=== PATIENT | female | born 1955 | race Caucasian/White ===

== ENCOUNTER 2019-03-12 11:25 | Emergency (ER) | payer MEDICARE, BC ==
[~2019-03-12] VITALS: Ht 175.3 cm; Wt 77.1 kg
[2019-03-12] MEDS ORDERED: HYDROMORPHONE INJ 2 MG/ML DISP.SYRIN IV ONE (12:00)
[2019-03-12] MEDS ORDERED: IV NS 0.9% 1,000 ML BAG IV ONE (12:00)
[2019-03-12] MEDS ORDERED: ONDANSETRON HCL/PF 4 MG/2 ML VIAL IVP ONE (12:00)
[2019-03-12] MEDS ORDERED: HYDROMORPHONE 1 MG/1 ML DISP.SYRIN ONE (12:05)
[2019-03-12] MEDS ORDERED: ONDANSETRON HCL/PF 4 MG/2 ML VIAL ONE (12:05)
[2019-03-12 13:15] VITALS: BP 126/72
== END 2019-03-12 13:39 | disposition home or self-care (01) ==
LOC: ER 11:28
DX: S42.291A Other displaced fracture of upper end of right humerus, initial encounter for closed fracture (principal); G89.29 Other chronic pain; Z98.890 Other specified postprocedural states; W01.0XXA Fall on same level from slipping, tripping and stumbling without subsequent striking against object, initial encounter; Y93.89 Activity, other specified; Y92.89 Other specified places as the place of occurrence of the external cause; Y99.8 Other external cause status
CPT/HCPCS: 29105; 73030; 96374; 96375; 99283; J1170; J2405; J7030

== ENCOUNTER 2019-03-20 04:56 | Inpatient (IN) | payer MEDICARE, BC ==
[~2019-03-20] VITALS: Ht 172.7 cm; Wt 80.5 kg
[2019-03-20 06:00] VITALS: BP 148/92
--- NOTE | 2019-03-20 06:16 | NUR ---
RN MS ADMITTING NOTES RECEIVED PT AMBULATORY ACCOMPANIED BY SPOUSE FOR DAY SURGERY. AWAKE ALERT ORIENTED X4, BREATHING EVEN AND UNLABORED ON ROOM AIR. IV ACCESS ON THE L HAND 20G, CONSENTS SIGNED, SURGERY CHECKLIST DONE, ADMISSION COMPLETED, WILL CONTINUE TO MONITOR
[2019-03-20] MEDS ORDERED: ANESTHESIA TRAY IN PYXIS 1 EA TRAY MC ONE (06:24)
[2019-03-20] MEDS ORDERED: BACITRACIN 50000 UNITS/VIAL ONE (06:24)
[2019-03-20] MEDS ORDERED: BUPIVACAINE 0.5 % PF 150 MG/30 ML VIAL ONE (06:24)
[2019-03-20] MEDS ORDERED: GABA800T11 PO (06:37)
[2019-03-20] MEDS ORDERED: FENTANYL PF 250MCG/5ML AMPUL ONE (07:09)
[2019-03-20] MEDS ORDERED: METOCLOPRAMIDE HCL 10 MG/2 ML VIAL ONE ×2 (07:09→10:20)
[2019-03-20] MEDS ORDERED: MIDAZOLAM HCL 2 MG/2ML VIAL ONE (07:09)
[2019-03-20] MEDS ORDERED: ROCURONIUM BROMIDE 50 MG/5 ML ONE (07:10)
[2019-03-20] MEDS ORDERED: FAMOTIDINE/PF INJ 20 MG/2 ML VIAL IV ONE (07:10)
[2019-03-20] MEDS ORDERED: BUPIVACAINE 0.25% 75 MG/30 ML VIAL ONE (07:11)
--- NOTE | 2019-03-20 07:15 | NUR ---
M/S RN OPENING NOTES RECEIVED ENDORSEMENT FROM [facility] FOR PATIENT WITH RIGHT REVERSE TOTAL SHOULDER ARHTROPLASTY WHO IS CURRENTLY IN SURGERY. WILL FURTHER ASSESS PATIENT ONCE ON MED SURG FLOOR.
[2019-03-20] MEDS ORDERED: SEVOFLURANE 250 ML BOTTLE IH ONE (07:46)
[2019-03-20] MEDS ORDERED: TRANEXAMIC ACID 1,000 MG in IV NS 0.9% 50 ML IV ONE (08:00)
[2019-03-20] MEDS ORDERED: ONDANSETRON HCL/PF 4 MG/2 ML VIAL ONE (10:06)
[2019-03-20] MEDS ORDERED: FENTANYL PF 100MCG/2ML AMPUL ONE (10:09)
--- NOTE | 2019-03-20 10:40 | NUR ---
M/S RN NOTES RECEIVED PATIENT FROM S/P REVERSE TOTAL RIGHT SHOULDER ARTHROPLASTY VIA GURNEY ACCOMPANIED BY KWAME FROM OR AND DENA . PATIENT A/O X4 AND ABLE TO MAKE NEEDS KNOWN, PATIENT RESPONSIVE TO ALL STIMULI. RESPIRATION EVEN AND NON LABORED WITH NO ACUTE RESPIRATORY DISTRESS, ON OXYGEN AT 2LPM VIA NASAL CANNULA AND TOLERATED WELL. ABDOMEN SOFT AND NON DISTENDED, FC IN PLACE WITH CLEAR YELLOW URINE OUTPUT. PATIENT COMPLAIN OF RIGHT SHOULDER PAIN 10/10, GIVEN NORCO ORDERED. ABLE TO MOVE RIGHT HAND FINGERS. IV SITE AT LEFT HAND GAUGE 20, PATENT IN FLUSHING. ALL CONCERNS ATTENDED. PLACED CALL LIGHT WITHIN REACH FOR SAFETY. ORDERS FROM DR. WILHELM VERIFIED, NOTED AND CARRIED OUT. WILL CONTINUE TO EVALUATE CARE.
[2019-03-20] MEDS ORDERED: ACETAMINOPHEN 325 MG TABLET PO PRN (11:00)
[2019-03-20] MEDS: HYDROCODONE/APAP 5/325MG 1 EACH TABLET PO PRN ×3 (11:07→23:49)
[2019-03-20] MEDS ORDERED: META800T85 PO (11:34)
[2019-03-20 12:19] LABS: BASOPHILS # (AUTO) 0.1 /CMM (0.0-0.2); BASOPHILS % (AUTO) 0.5 % (0.0-2.0); EOSINOPHILS % (AUTO) 0.1 % (0.0-6.0); HEMATOCRIT 32 % (33-45); HEMOGLOBIN 10.7 g/dL (11.5-14.8); LYMPHOCYTES # (AUTO) 1.2 /CMM (0.8-4.8); MEAN CORPUSCULAR HGB CONC 33 g/dl (31.0-36.0); MEAN CORPUSCULAR VOLUME 94 fL (82-100); MONOCYTES # (AUTO) 0.8 /CMM (0.1-1.30); MONOCYTES % (AUTO) 4.8 % (2.0-12.0); NEUTROPHILS # (AUTO) 15.4 /CMM (1.8-8.9); NEUTROPHILS % (AUTO) 87.6 % (43.0-81.0); PLATELET COUNT (AUTO) 310 /CMM (150-450); RED BLOOD CELL COUNT(AUTO) 3.43 MIL/uL (4.0-5.2); WHITE BLOOD COUNT (AUTO) 17.6 K/uL (4.3-11.0)
--- NOTE | 2019-03-20 14:05 | NUR ---
MS/RN SPOKE WITH RUBY GOLDSTEIN AND NOTIFIED PATIENT WBC NOTED 17.6. VITALS STABLE AT THIS TIME. ALSO REMINDED PATIENT'S MED RECON NEEDS TO BE DONE. PER RUBY GOLDSTEIN, WILL DO IT.
[2019-03-20] MEDS: CEFAZOLIN 2 GM in IV D5W 50 ML IV SCH ×2 (15:57→23:49)
[2019-03-20 17:35] VITALS: BP 116/70
[2019-03-20] MEDS: GABAPENTIN 400 MG CAPSULE PO SCH (18:54)
--- NOTE | 2019-03-20 18:58 | NUR ---
M/S RN CLOSING NOTES PATIENT A/O X 4 AND ABLE TO MAKE NEEDS KNOWN, RESPONSIVE TO ALL STIMULI. RESPIRATION EVEN AND NON LABORED WITH NO ACUTE RESPIRATORY DISTRESS, ON O2 AT 2LPM VIA NASAL CANNULA AND TOLERATED WELL. ABDOMEN SOFT AND NON DISTENDED WITH ACTIVE BOWEL SOUNDS, ON FC WITH CLEAR YELLOW URINE. SKIN WARM TO TOUCH AND DRY, RIGHT SHOULDER WITH SLING ON. PATIENT DENIES PAIN AND DISCOMFORT AT THIS TIME. ALL CONCERNS ADDRESSED. PLACED CALL LIGHT WITHIN REACH FOR SAFETY. ENDORSED TO NEXT SHIFT.
[2019-03-20 20:00] VITALS: BP 120/74
--- NOTE | 2019-03-20 20:10 | NUR ---
MS RN NOTES RECEIVED PATIENT AWAKE IN BED WITH NO DISTRESS NOTED. CALL LIGHT WITHIN REACH. PERIPHERAL LINE INTACT AND PATENT. NO C/O PAIN OR DISCOMFORT. RIGHT ARM SLING INTACT. EXTREMITY NOTED WITH GOOD CIRCULATION. NO C/O NUMBNESS OR TINGLING. BED IN LOW LOCK SETTING. ENCOURAGED USE OF CALL LIGHT FOR ASSISTANCE AND VERBALIZED GOOD UNDERSTANDING. ROOM FREE OF CLUTTER AND BELONGINGS KEPT NEAR BEDSIDE. WILL CONTINUE TO MONITOR.
[2019-03-20] MEDS: HYDROMORPHONE 1 MG/1 ML DISP.SYRIN IV PRN (21:09)
--- NOTE | 2019-03-20 22:12 | NUR ---
Met with patient, she is alert and very pleasant. She lives locally with her spouse in a single level home. Prior to hospitalization, she ambulates with a cane as needed inside household and use a wheelchair and walker for outside household and long distance. She has adequate DME: cane, walker wheelchair, grab bars, shower chair handicapped toilet and recliner chair. She is currently on service with [facility] . She has a cleaning lady that come once a week and her is very involved and supportive. Patient want to return home when discharge with [facility] to resume services. Addendum: 03/20/19 at 2213 by REBEL RAGSDALE RN Amended: Links added.
[2019-03-21] MEDS: HYDROMORPHONE 1 MG/1 ML DISP.SYRIN IV PRN (01:45)
[2019-03-21] MEDS: HYDROCODONE/APAP 5/325MG 1 EACH TABLET PO PRN ×2 (05:13→09:38)
--- NOTE | 2019-03-21 06:30 | NUR ---
MS RN NOTES PATIENT ASLEEP IN BED WITH NO DISTRESS NOTED. CALL LIGHT WITHIN REACH. ALL DUE MEDS GIVEN ORDERED WITH NO ASE NOTED. PERIPHERAL LINE INTACT AND PATENT. NO FURTHER C/O PAIN OR DISCOMFORT. FC INTACT, PATENT, AND DRAINED 700ML CLEAR JUMANA URINE DURING SHIFT. NO ABDOMINAL DISTENTION NOTED. RIGHT ARM SLING IN PLACE AT ALL TIMES. EXTREMITY NOTED WITH GOOD CIRCULATION. NO C/O NUMBNESS OR TINGLING. DRESSING INTACT, CLEAN, AND DRY. BED IN LOW LOCK SETTING. ROOM FREE OF CLUTTER AND BELONGINGS KEPT NEAR BEDSIDE. WILL CONTINUE TO MONITOR.
[2019-03-21 06:53] LABS: BASOPHILS # (AUTO) 0.1 /CMM (0.0-0.2); BASOPHILS % (AUTO) 0.6 % (0.0-2.0); EOSINOPHILS % (AUTO) 0.8 % (0.0-6.0); HEMATOCRIT 30 % (33-45); HEMOGLOBIN 10.2 g/dL (11.5-14.8); LYMPHOCYTES # (AUTO) 2.1 /CMM (0.8-4.8); LYMPHOCYTES % (AUTO) 13.7 % (20.0-44.0); MEAN CORPUSCULAR HGB CONC 34 g/dl (31.0-36.0); MEAN CORPUSCULAR VOLUME 95 fL (82-100); MONOCYTES # (AUTO) 1.3 /CMM (0.1-1.30); MONOCYTES % (AUTO) 8.7 % (2.0-12.0); NEUTROPHILS # (AUTO) 11.6 /CMM (1.8-8.9); NEUTROPHILS % (AUTO) 76.2 % (43.0-81.0); PLATELET COUNT (AUTO) 270 /CMM (150-450); RED BLOOD CELL COUNT(AUTO) 3.19 MIL/uL (4.0-5.2); WHITE BLOOD COUNT (AUTO) 15.3 K/uL (4.3-11.0)
--- NOTE | 2019-03-21 07:20 | NUR ---
M/S RN OPENING NOTES PATIENT A/O X 4 AND ABLE TO MAKE NEEDS KNOWN, RESPONSIVE TO ALL STIMULI. RESPIRATION EVEN AND NON LABORED WITH NO ACUTE RESPIRATORY DISTRESS IN ROOM AIR. ABDOMEN SOFT AND NON DISTENDED WITH ACTIVE BOWEL SOUNDS TO ALL QUADRANTS, ON FC WITH CLEAR YELLOW URINE. SKIN WARM TO TOUCH AND DRY, RIGHT SHOULDER WITH SLING ON AND TOLERATED WELL. PATIENT COMPLAIN OF 3/10 AND ABLE TO TOLERATED WELL, MEDICATION NOT NEEDED AT THIS TIME. IV SITE ON LEFT HAND WITH NO S/SX OF INFILTRATION. ALL CONCERNS ADDRESSED. PLACED CALL LIGHT WITHIN REACH FOR SAFETY. WILL CONTINUE TO EVALUATE CARE.
[2019-03-21 07:22] LABS: CALCIUM, SERUM 8.4 mg/dL (8.5-10.1); CREATININE 0.6 mg/dL (0.6-1.3); MAGNESIUM 1.9 mg/dL (1.8-2.4); POTASSIUM 3.7 mmol/L (3.5-5.1)
[2019-03-21 08:00] VITALS: BP 121/71
[2019-03-21] MEDS: CEFAZOLIN 2 GM in IV D5W 50 ML IV SCH (08:16)
[2019-03-21] MEDS: GABAPENTIN 400 MG CAPSULE PO SCH (09:00)
[2019-03-21] MEDS ORDERED: SKELAXIN 800 MG PO SCH (09:00)
--- NOTE | 2019-03-21 09:26 | NUR ---
M/S RN NOTES PATIENT REFUSED GABAPENTIN, PER PATIENT SHE TAKES HER MEDICATION 2 TABS OF 300 MG AT NIGHT TIME ONLY. REFERRED TO RUBY GOLDSTEIN WITH NEW ORDER TO CHANGE GABAPENTIN 600 MG TAB PO QPM. ORDER VERIFIED, NOTED AND CARRIED OUT. PATIENT NOTIFIED
--- NOTE | 2019-03-21 10:30 | NUR ---
M/S RN NOTES REMOVED RIVERA CATHETER AND PATIENT ABLE TO TOLERATE WELL. NO S/SX OF INFLAMMATION ON LABIA, NO BLEEDING OCCURRED. URINE OUTPUT WITH 700 ML WITH CLEAR YELLOW URINE. ASSISTED PATIENT IN THE BATHROOM. WILL CONTINUE TO MONITOR.
--- NOTE | 2019-03-21 13:50 | NUR ---
M/S LITHOGRAPHY CONTACT WORKER NOTES PATIENT DISCHARGED IN STABLE CONDITION ACCOMPANIED BY DENA () IN A PRIVATE CAR WHEELED OUT BY ALBERT POLANCO. PATIENT A/O X 4. RESPIRATION EVEN AND NON LABORED WITH NO ACUTE RESPIRATORY DISTRESS IN ROOM AIR. ABDOMEN SOFT AND NON DISTENDED WITH ACTIVE BOWEL SOUNDS TO ALL QUADRANTS, PATIENT UNABLE TO MOVE BM BUT WITH URGE TO DO SO. PATIENT ABLE TO URINATE AFTER RIVERA CATHETER REMOVAL WITH NO DIFFICULTIES. PATIENT DENIES PAIN AND DISCOMFORT AT THIS TIME WITH NORCO AT HOME PRESCRIBED BY PCP NEEDED WHEN PAIN ARISES. DISCHARGE INSTRUCTIONS PROVIDED WITH VERBAL UNDERSTANDING. RIGHT ARM ON SLING AND ABLE TO TOLERATE GOOD. IV ON LEFT HAND REMOVED WITH NO S/SX ON INFECTION ON SITE. ALL CONCERNS ADDRESSED. CLOTHES, VALUABLES AND MEDICATION TOOK HOME WITH PATIENT.
[2019-03-22] MEDS ORDERED: GABAPENTIN 300 MG CAPSULE PO SCH (10:00)
== END 2019-03-21 13:52 | disposition home health service (06) | DRG 483 ==
LOC: DS 04:56 → MED 05:18
PROVIDERS: ADMIT Nurse Practitioner Acute Care; ATTEND Nurse Practitioner Acute Care
PROC: 0RRJ00Z Replacement of Right Shoulder Joint with Reverse Ball and Socket Synthetic Substitute, Open Approach (ICD-10-PCS; principal; 2019-03-20)
DX: S42.201A Unspecified fracture of upper end of right humerus, initial encounter for closed fracture (principal); J98.11 Atelectasis; W01.0XXA Fall on same level from slipping, tripping and stumbling without subsequent striking against object, initial encounter; Y92.009 Unspecified place in unspecified non-institutional (private) residence as the place of occurrence of the external cause; G89.29 Other chronic pain; D72.829 Elevated white blood cell count, unspecified
CPT/HCPCS: 36415; 73020; 80048-TC; 83735-TC; 84100-TC; 85025-TC; 86850-TC; 86921-TC; 87081-TC; 88305-TC; 88311-TC; A4216; A4217; A4565; A6402; G0378; J0690; J1170; J2250; J2405; J2704; J2710; J2765; J3010; J3490; J7050; J7060

== ENCOUNTER 2023-12-25 19:49 | Inpatient (IN) | payer MEDICARE, BC ==
[~2023-12-25] VITALS: Ht 172.7 cm; Wt 69.4 kg
[~2023-12-25 19:49] MED LIST: GABA800T11 PO; META800T85 PO
[2023-12-25] MEDS: IV NS 0.9% 500 ML BAG IV ONE (20:42)
[2023-12-25 21:01] LABS: BASOPHILS # (AUTO) 0.1 K/uL (0.0-0.2); BASOPHILS % (AUTO) 0.3 % (0.0-2.0); EOSINOPHILS % (AUTO) 0.3 % (0.0-6.0); HEMATOCRIT 42 % (33-45); HEMOGLOBIN 14.3 g/dL (11.5-14.8); LYMPHOCYTES # (AUTO) 1.5 K/uL (0.8-4.8); LYMPHOCYTES % (AUTO) 9.3 % (20.0-44.0); MEAN CORPUSCULAR HEMOGLOBIN 31 PG (26.0-33.0); MEAN CORPUSCULAR HGB CONC 35 g/dl (31.0-36.0); MEAN CORPUSCULAR VOLUME 91 fL (82-100); MONOCYTES # (AUTO) 0.9 K/uL (0.1-1.30); MONOCYTES % (AUTO) 5.6 % (2.0-12.0); NEUTROPHILS # (AUTO) 13.6 K/uL (1.8-8.9); NEUTROPHILS % (AUTO) 84.5 % (43.0-81.0); PLATELET COUNT (AUTO) 230 K/uL (150-450); RED BLOOD CELL COUNT(AUTO) 4.58 MIL/uL (4.0-5.2); RED CELL DISTRIBUTION WIDTH 13.6 % (11.5-15.0); WHITE BLOOD COUNT (AUTO) 16.1 K/uL (4.3-11.0)
[2023-12-25 21:16] LABS: INR 0.99 (0.91-1.10); PROTHROMBIN TIME 10.5 SECS (9.2-11.1)
[2023-12-25 21:29] LABS: CALCIUM, SERUM 8.6 mg/dL (8.5-10.1); CARBON DIOXIDE 26 mmol/L (21-32); CREATININE 5.3 mg/dL (0.6-1.3); GLUCOSE 224 mg/dL (74-106); THYROID STIMULATING HORMONE 0.777 uIU/mL (0.358-3.74)
[2023-12-25 21:36] LABS: ALANINE AMINOTRANSFERASE 49 U/L (12-78); ALBUMIN 3.8 g/dL (3.4-5.0); ALKALINE PHOSPHATASE 80 U/L (46-116); ASPARTATE AMINOTRANSFERASE 33 U/L (15-37); BILIRUBIN,DIRECT 0.2 mg/dL (0.0-0.2); BILIRUBIN,TOTAL 0.9 mg/dL (0.2-1.0); TOTAL PROTEIN, SERUM 8.2 g/dL (6.4-8.2)
[2023-12-25 21:38] LABS: CHLORIDE 69 mmol/L (98-107); POTASSIUM 1.7 mmol/L (3.5-5.1); SODIUM SERUM 114 mmol/L (136-145); UREA NITROGEN, BLOOD 145 mg/dL (7-18)
[2023-12-25 21:44] LABS: LYMPHOCYTES % (MANUAL) 10 % (16-48); MONOCYTES % (MANUAL) 8 % (0-11.0); NEUTROPHILS % (MANUAL) 82 (42-76); PLATELET ESTIMATE ADEQUATE
[2023-12-25] MEDS ORDERED: MAG HYDROX/AL HYDROX/SIMETH 30 ML UDC PO PRN (22:30)
[2023-12-25] MEDS ORDERED: Z GUARD REMEDY 4 OZ OINT TP PRN (22:30)
[2023-12-25] MEDS: IV NS 0.9% 1,000 ML BAG IV ONE (22:30)
[2023-12-25] MEDS: POTASSIUM CHLORIDE 20 MEQ TAB.PRT.SR PO ONE (22:45)
[2023-12-25] MEDS: POTASSIUM CL. PREMIX PERIPHER. 50 ML IV SCH (22:45)
[2023-12-25 22:57] LABS: APPEARANCE,URINE CLOUDY (CLEAR); BILIRUBIN,URINE NEGATIVE (NEGATIVE); BLOOD, URINE 3+ Ery/uL (NEGATIVE); COLOR,URINE DARK YELLOW (YELLOW); KETONES,URINE NEGATIVE (NEGATIVE); LEUKOCYTE ESTERASE ,URINE TRACE (NEGATIVE); NITRITE, URINE NEGATIVE (NEGATIVE); PH,URINE 5.5 (5.0-8.0); PROTEIN,URINE TRACE mg/dl (NEGATIVE); UGLUCOSE NEGATIVE (NEGATIVE); UROBILINOGEN,URINE 0.2 EU/dL (0.2)
[2023-12-25 23:02] LABS: ADD URINE CULTURE YES; BACTERIA,URINE Few /HPF (None Seen); SQUAMOUS EPITHELIAL CELL,UR Rare /HPF (None Seen)
[2023-12-26] VITALS (34 sets, daily range): BP systolic 87–149; BP diastolic 55–86; TEMP 97–98.4; O2SAT 20–100
[2023-12-26 00:58] LABS: CALCIUM, SERUM 6.8 mg/dL (8.5-10.1); CREATININE 4.3 mg/dL (0.6-1.3)
[2023-12-26] MEDS ORDERED: CEFTRIAXONE 1GM BAG (ER ONLY) 50 ML IV ONE (01:03)
[2023-12-26 01:05] LABS: POTASSIUM 2.2 mmol/L (3.5-5.1)
[2023-12-26] MEDS: CEFTRIAXONE 1 G in IV D5W 50 ML IV ONE (01:10)
[2023-12-26] MEDS: IV NS 0.9% 1,000 ML IV PRN (02:20)
[2023-12-26] MEDS: POTASSIUM CHLORIDE 20 MEQ TAB.PRT.SR PO ONE ×4 (02:39→18:41)
[2023-12-26 04:42] LABS: CALCIUM, SERUM 7.8 mg/dL (8.5-10.1); MAGNESIUM 3.3 mg/dL (1.8-2.4); PHOSPHORUS 6.9 mg/dL (2.5-4.9)
[2023-12-26 05:24] LABS: POTASSIUM 2.2 mmol/L (3.5-5.1)
[2023-12-26] MEDS: ONDANSETRON HCL/PF 4 MG/2 ML VIAL IVP PRN (05:52)
[2023-12-26 07:46] LABS: CHOLESTEROL 279 mg/dL (<200); HDL CHOLESTEROL 39 mg/dL (40-60); LDL 204 mg/dL (0-99); TRIGLYCERIDES 177 mg/dL (30-150)
[2023-12-26] MEDS ORDERED: GABA300C PO (08:21)
[2023-12-26] MEDS: POTASSIUM CHLORIDE 10 MEQ/50 ML PREMIXED IVPB FOR PERIPHERAL LINE IV ONE (08:30)
[2023-12-26 09:15] LABS: BASOPHILS % (AUTO) 0.2 % (0.0-2.0); EOSINOPHILS # (AUTO) 0.1 K/uL (0.0-0.7); EOSINOPHILS % (AUTO) 0.4 % (0.0-6.0); HEMATOCRIT 35 % (33-45); HEMOGLOBIN 11.9 g/dL (11.5-14.8); LYMPHOCYTES # (AUTO) 1.8 K/uL (0.8-4.8); LYMPHOCYTES % (AUTO) 9.6 % (20.0-44.0); MEAN CORPUSCULAR HEMOGLOBIN 31 PG (26.0-33.0); MEAN CORPUSCULAR HGB CONC 34 g/dl (31.0-36.0); MEAN CORPUSCULAR VOLUME 91 fL (82-100); MONOCYTES # (AUTO) 1.5 K/uL (0.1-1.30); MONOCYTES % (AUTO) 7.9 % (2.0-12.0); NEUTROPHILS # (AUTO) 15.7 K/uL (1.8-8.9); NEUTROPHILS % (AUTO) 81.9 % (43.0-81.0); PLATELET COUNT (AUTO) 188 K/uL (150-450); RED CELL DISTRIBUTION WIDTH 13.5 % (11.5-15.0); WHITE BLOOD COUNT (AUTO) 19.1 K/uL (4.3-11.0)
[2023-12-26] MEDS: GABAPENTIN 400 MG CAPSULE PO SCH (09:57)
[2023-12-26 11:34] LABS: BASOPHILS % (AUTO) 0.2 % (0.0-2.0); EOSINOPHILS # (AUTO) 0.1 K/uL (0.0-0.7); EOSINOPHILS % (AUTO) 0.3 % (0.0-6.0); HEMATOCRIT 35 % (33-45); LYMPHOCYTES # (AUTO) 2.8 K/uL (0.8-4.8); MEAN CORPUSCULAR HEMOGLOBIN 32 PG (26.0-33.0); MEAN CORPUSCULAR HGB CONC 34 g/dl (31.0-36.0); MEAN CORPUSCULAR VOLUME 92 fL (82-100); MONOCYTES # (AUTO) 1.4 K/uL (0.1-1.30); NEUTROPHILS # (AUTO) 15.9 K/uL (1.8-8.9); NEUTROPHILS % (AUTO) 78.5 % (43.0-81.0); PLATELET COUNT (AUTO) 173 K/uL (150-450); RED CELL DISTRIBUTION WIDTH 13.9 % (11.5-15.0); WHITE BLOOD COUNT (AUTO) 20.3 K/uL (4.3-11.0)
[2023-12-26 11:44] LABS: CALCIUM, SERUM 8.2 mg/dL (8.5-10.1); CREATININE 3.5 mg/dL (0.6-1.3)
[2023-12-26 11:50] LABS: ALBUMIN 3.1 g/dL (3.4-5.0); BILIRUBIN,TOTAL 0.8 mg/dL (0.2-1.0); TOTAL PROTEIN, SERUM 6.7 g/dL (6.4-8.2)
[2023-12-26] MEDS: POTASSIUM CL. PREMIX PERIPHER. 50 ML IV SCH ×2 (11:52→16:38)
[2023-12-26 11:53] LABS: POTASSIUM 2.5 mmol/L (3.5-5.1)
[2023-12-26 11:57] LABS: ANISOCYTOSIS 1+; BASOPHILS % (MANUAL) 0 % (0.0-2.0); EOSINOPHILS % (MANUAL) 0 % (0-4); LYMPHOCYTES % (MANUAL) 12 % (16-48); MONOCYTES % (MANUAL) 7 % (0-11.0); NEUTROPHILS % (MANUAL) 81 (42-76); PLATELET ESTIMATE ADEQUATE
[2023-12-26] MEDS: IV D5W 1,000 ML IV SCH (13:08)
[2023-12-26 18:13] LABS: CALCIUM, SERUM 8.5 mg/dL (8.5-10.1); CREATININE 2.9 mg/dL (0.6-1.3)
[2023-12-26] MEDS ORDERED: CEFTRIAXONE 1 G in IV D5W 50 ML IV SCH (22:00)
[2023-12-26] MEDS: CEFTRIAXONE 1 G in IV D5W 50 ML IV SCH (22:00)
[2023-12-26 22:08] LABS: POTASSIUM 3.4 mmol/L (3.5-5.1)
[2023-12-26 22:09] LABS: CALCIUM, SERUM 8.3 mg/dL (8.5-10.1)
[2023-12-26 22:10] LABS: CREATININE 2.6 mg/dL (0.6-1.3)
[2023-12-27] VITALS (33 sets, daily range): BP systolic 90–125; BP diastolic 46–87; TEMP 98.2–98.7; O2SAT 95–99
[2023-12-27] MEDS ORDERED: HYDROCORTISONE CR 30 GM TUBE RC PRN (01:00)
[2023-12-27 01:37] LABS: BASOPHILS # (AUTO) 0.1 K/uL (0.0-0.2); BASOPHILS % (AUTO) 0.7 % (0.0-2.0); EOSINOPHILS # (AUTO) 0.1 K/uL (0.0-0.7); EOSINOPHILS % (AUTO) 0.9 % (0.0-6.0); HEMATOCRIT 35 % (33-45); LYMPHOCYTES # (AUTO) 2.9 K/uL (0.8-4.8); LYMPHOCYTES % (AUTO) 18.2 % (20.0-44.0); MEAN CORPUSCULAR HEMOGLOBIN 32 PG (26.0-33.0); MEAN CORPUSCULAR HGB CONC 34 g/dl (31.0-36.0); MEAN CORPUSCULAR VOLUME 93 fL (82-100); MONOCYTES # (AUTO) 1.5 K/uL (0.1-1.30); MONOCYTES % (AUTO) 9.4 % (2.0-12.0); NEUTROPHILS # (AUTO) 11.2 K/uL (1.8-8.9); NEUTROPHILS % (AUTO) 70.8 % (43.0-81.0); PLATELET COUNT (AUTO) 198 K/uL (150-450); RED BLOOD CELL COUNT(AUTO) 3.78 MIL/uL (4.0-5.2); RED CELL DISTRIBUTION WIDTH 13.7 % (11.5-15.0); WHITE BLOOD COUNT (AUTO) 15.8 K/uL (4.3-11.0)
[2023-12-27] MEDS: ACETAMINOPHEN 325 MG TABLET PO PRN (05:12)
[2023-12-27] MEDS: IV NS 0.9% 1,000 ML IV ONE (05:15)
[2023-12-27 05:16] LABS: BASOPHILS % (AUTO) 0.3 % (0.0-2.0); EOSINOPHILS # (AUTO) 0.1 K/uL (0.0-0.7); EOSINOPHILS % (AUTO) 0.7 % (0.0-6.0); HEMATOCRIT 32 % (33-45); HEMOGLOBIN 11.2 g/dL (11.5-14.8); LYMPHOCYTES # (AUTO) 2.7 K/uL (0.8-4.8); LYMPHOCYTES % (AUTO) 17.6 % (20.0-44.0); MEAN CORPUSCULAR HEMOGLOBIN 32 PG (26.0-33.0); MEAN CORPUSCULAR HGB CONC 35 g/dl (31.0-36.0); MEAN CORPUSCULAR VOLUME 92 fL (82-100); MONOCYTES # (AUTO) 1.3 K/uL (0.1-1.30); MONOCYTES % (AUTO) 8.4 % (2.0-12.0); NEUTROPHILS # (AUTO) 11.2 K/uL (1.8-8.9); PLATELET COUNT (AUTO) 184 K/uL (150-450); RED BLOOD CELL COUNT(AUTO) 3.49 MIL/uL (4.0-5.2); RED CELL DISTRIBUTION WIDTH 13.9 % (11.5-15.0); WHITE BLOOD COUNT (AUTO) 15.3 K/uL (4.3-11.0)
[2023-12-27 05:37] LABS: ALBUMIN 2.7 g/dL (3.4-5.0); BILIRUBIN,TOTAL 0.6 mg/dL (0.2-1.0); CALCIUM, SERUM 8.3 mg/dL (8.5-10.1); CREATININE 2.3 mg/dL (0.6-1.3); MAGNESIUM 2.9 mg/dL (1.8-2.4); PHOSPHORUS 2.5 mg/dL (2.5-4.9); POTASSIUM 3.2 mmol/L (3.5-5.1); TOTAL PROTEIN, SERUM 6.2 g/dL (6.4-8.2)
[2023-12-27] MEDS: POTASSIUM CHLORIDE 20 MEQ TAB.PRT.SR PO SCH (07:12)
[2023-12-27] MEDS ORDERED: NYSTATIN (PYXIS) 500,000 UNIT/5 ML ORAL.SUSP PO PRN ×2 (20:30)
[2023-12-27] MEDS: GABAPENTIN 300 MG CAPSULE PO SCH (21:22)
[2023-12-27] MEDS: NYSTATIN (PYXIS) 500,000 UNIT/5 ML ORAL.SUSP PO SCH (21:22)
[2023-12-28] VITALS (20 sets, daily range): BP systolic 92–120; BP diastolic 55–88; TEMP 97.5–100; O2SAT 91–98
[2023-12-28 05:24] LABS: BASOPHILS # (AUTO) 0.2 K/uL (0.0-0.2); BASOPHILS % (AUTO) 1.7 % (0.0-2.0); EOSINOPHILS # (AUTO) 0.3 K/uL (0.0-0.7); HEMATOCRIT 32 % (33-45); LYMPHOCYTES # (AUTO) 2.7 K/uL (0.8-4.8); LYMPHOCYTES % (AUTO) 18.7 % (20.0-44.0); MEAN CORPUSCULAR HEMOGLOBIN 32 PG (26.0-33.0); MEAN CORPUSCULAR HGB CONC 34 g/dl (31.0-36.0); MEAN CORPUSCULAR VOLUME 93 fL (82-100); MONOCYTES # (AUTO) 1.4 K/uL (0.1-1.30); MONOCYTES % (AUTO) 9.8 % (2.0-12.0); NEUTROPHILS # (AUTO) 9.7 K/uL (1.8-8.9); NEUTROPHILS % (AUTO) 67.8 % (43.0-81.0); PLATELET COUNT (AUTO) 199 K/uL (150-450); RED BLOOD CELL COUNT(AUTO) 3.45 MIL/uL (4.0-5.2); RED CELL DISTRIBUTION WIDTH 14.2 % (11.5-15.0); WHITE BLOOD COUNT (AUTO) 14.3 K/uL (4.3-11.0)
[2023-12-28 05:40] LABS: ALBUMIN 2.7 g/dL (3.4-5.0); BILIRUBIN,TOTAL 0.3 mg/dL (0.2-1.0); CALCIUM, SERUM 8.3 mg/dL (8.5-10.1); CREATININE 1.8 mg/dL (0.6-1.3); MAGNESIUM 2.3 mg/dL (1.8-2.4); PHOSPHORUS 2.1 mg/dL (2.5-4.9); POTASSIUM 3.9 mmol/L (3.5-5.1); TOTAL PROTEIN, SERUM 6.3 g/dL (6.4-8.2)
[2023-12-28 07:12] LABS: PTH, INTACT 29 pg/mL (15-65)
[2023-12-28] MEDS: K PHOS NEUTRAL 250 MG TABLET PO ONE (15:32)
[2023-12-29] VITALS: BP 105/70; TEMP 98.2; O2SAT 99
[2023-12-29 04:00] VITALS: BP 115/76; TEMP 98; O2SAT 98
[2023-12-29 06:40] LABS: BASOPHILS # (AUTO) 0.1 K/uL (0.0-0.2); BASOPHILS % (AUTO) 0.7 % (0.0-2.0); EOSINOPHILS # (AUTO) 0.4 K/uL (0.0-0.7); EOSINOPHILS % (AUTO) 2.9 % (0.0-6.0); HEMATOCRIT 35 % (33-45); HEMOGLOBIN 11.8 g/dL (11.5-14.8); LYMPHOCYTES # (AUTO) 4.3 K/uL (0.8-4.8); LYMPHOCYTES % (AUTO) 28.8 % (20.0-44.0); MEAN CORPUSCULAR HEMOGLOBIN 32 PG (26.0-33.0); MEAN CORPUSCULAR HGB CONC 34 g/dl (31.0-36.0); MEAN CORPUSCULAR VOLUME 94 fL (82-100); MONOCYTES # (AUTO) 1.3 K/uL (0.1-1.30); NEUTROPHILS # (AUTO) 8.7 K/uL (1.8-8.9); NEUTROPHILS % (AUTO) 58.6 % (43.0-81.0); PLATELET COUNT (AUTO) 251 K/uL (150-450); RED BLOOD CELL COUNT(AUTO) 3.74 MIL/uL (4.0-5.2); RED CELL DISTRIBUTION WIDTH 13.9 % (11.5-15.0); WHITE BLOOD COUNT (AUTO) 14.9 K/uL (4.3-11.0)
[2023-12-29 07:05] LABS: CALCIUM, SERUM 8.5 mg/dL (8.5-10.1); CREATININE 1.6 mg/dL (0.6-1.3); MAGNESIUM 2.3 mg/dL (1.8-2.4); PHOSPHORUS 3.1 mg/dL (2.5-4.9); POTASSIUM 3.7 mmol/L (3.5-5.1)
[2023-12-29 09:03] VITALS: BP 96/61; TEMP 97.7; O2SAT 95
[2023-12-29 16:33] VITALS: BP 107/60; TEMP 97.6; O2SAT 98
[2023-12-29 21:54] VITALS: BP 110/86; TEMP 98.2; O2SAT 95
[2023-12-30 00:22] VITALS: BP 115/79; TEMP 98.1; O2SAT 97
[2023-12-30 04:22] VITALS: BP 122/84; TEMP 97.5; O2SAT 96
[2023-12-30 07:17] LABS: BASOPHILS # (AUTO) 0.1 K/uL (0.0-0.2); BASOPHILS % (AUTO) 0.8 % (0.0-2.0); EOSINOPHILS # (AUTO) 0.3 K/uL (0.0-0.7); EOSINOPHILS % (AUTO) 2.3 % (0.0-6.0); HEMATOCRIT 37 % (33-45); HEMOGLOBIN 12.6 g/dL (11.5-14.8); LYMPHOCYTES # (AUTO) 3.1 K/uL (0.8-4.8); LYMPHOCYTES % (AUTO) 20.7 % (20.0-44.0); MEAN CORPUSCULAR HEMOGLOBIN 32 PG (26.0-33.0); MEAN CORPUSCULAR HGB CONC 34 g/dl (31.0-36.0); MEAN CORPUSCULAR VOLUME 93 fL (82-100); MONOCYTES # (AUTO) 0.9 K/uL (0.1-1.30); MONOCYTES % (AUTO) 6.4 % (2.0-12.0); NEUTROPHILS # (AUTO) 10.3 K/uL (1.8-8.9); NEUTROPHILS % (AUTO) 69.8 % (43.0-81.0); PLATELET COUNT (AUTO) 292 K/uL (150-450); RED BLOOD CELL COUNT(AUTO) 3.93 MIL/uL (4.0-5.2); RED CELL DISTRIBUTION WIDTH 13.9 % (11.5-15.0); WHITE BLOOD COUNT (AUTO) 14.8 K/uL (4.3-11.0)
[2023-12-30 07:51] LABS: CALCIUM, SERUM 9.3 mg/dL (8.5-10.1); CREATININE 1.7 mg/dL (0.6-1.3); MAGNESIUM 2.2 mg/dL (1.8-2.4); PHOSPHORUS 2.8 mg/dL (2.5-4.9); POTASSIUM 3.1 mmol/L (3.5-5.1)
[2023-12-30 08:00] VITALS: BP 106/71; TEMP 99.5; O2SAT 97
[2023-12-30 08:33] LABS: ANISOCYTOSIS 1+; BAND % (MANUAL) 3 % (0.0-5.0); BASOPHILS % (MANUAL) 0 % (0.0-2.0); EOSINOPHILS % (MANUAL) 2 % (0-4); LYMPHOCYTES % (MANUAL) 24 % (16-48); MONOCYTES % (MANUAL) 6 % (0-11.0); NEUTROPHILS % (MANUAL) 65 (42-76); PLATELET ESTIMATE ADEQUATE
[2023-12-30] MEDS: POTASSIUM CHLORIDE 20 MEQ TAB.PRT.SR PO SCH (10:05)
[2023-12-30] MEDS: POTASSIUM CL. PREMIX PERIPHER. 50 ML IV SCH (10:05)
[2023-12-30 12:06] LABS: *SPE ALBUMIN 2.7 g/dL (2.9-4.4); *SPE ALPHA-1-GLOBULIN 0.3 g/dL (0.0-0.4); *SPE ALPHA-2-GLOBULIN 0.7 g/dL (0.4-1.0); *SPE BETA GLOBULIN 1.1 g/dL (0.7-1.3); *SPE GLOBULIN, TOTAL 2.7 g/dL (2.2-3.9); *SPE M-SPIKE Not Observed g/dL (Not Observed); *SPE PROTEIN TOTAL 5.4 g/dL (6.0-8.5); *SPEGAMMA GLOBULIN 0.6 g/dL (0.4-1.8)
[2023-12-30 16:00] VITALS: BP 102/75; TEMP 98.8; O2SAT 96
[2023-12-30] MEDS: ZOLPIDEM TARTRATE 5 MG TABLET PO PRN (20:57)
[2023-12-31 07:39] LABS: BASOPHILS # (AUTO) 0.1 K/uL (0.0-0.2); BASOPHILS % (AUTO) 0.6 % (0.0-2.0); EOSINOPHILS # (AUTO) 0.5 K/uL (0.0-0.7); EOSINOPHILS % (AUTO) 2.6 % (0.0-6.0); HEMATOCRIT 39 % (33-45); HEMOGLOBIN 13.3 g/dL (11.5-14.8); LYMPHOCYTES # (AUTO) 3.2 K/uL (0.8-4.8); LYMPHOCYTES % (AUTO) 17.8 % (20.0-44.0); MEAN CORPUSCULAR HEMOGLOBIN 32 PG (26.0-33.0); MEAN CORPUSCULAR HGB CONC 34 g/dl (31.0-36.0); MEAN CORPUSCULAR VOLUME 94 fL (82-100); MONOCYTES % (AUTO) 5.7 % (2.0-12.0); NEUTROPHILS % (AUTO) 73.3 % (43.0-81.0); PLATELET COUNT (AUTO) 330 K/uL (150-450); RED BLOOD CELL COUNT(AUTO) 4.22 MIL/uL (4.0-5.2); RED CELL DISTRIBUTION WIDTH 13.8 % (11.5-15.0); WHITE BLOOD COUNT (AUTO) 17.8 K/uL (4.3-11.0)
[2023-12-31 08:00] VITALS: BP 108/81; TEMP 98.6; O2SAT 97
[2023-12-31 08:54] LABS: CALCIUM, SERUM 9.4 mg/dL (8.5-10.1); CREATININE 1.7 mg/dL (0.6-1.3); POTASSIUM 3.4 mmol/L (3.5-5.1)
[2023-12-31] MEDS: IV NS 0.9% 1,000 ML IV SCH (10:01)
[2023-12-31] MEDS: POTASSIUM CL. PREMIX PERIPHER. 50 ML IV SCH (10:01)
[2023-12-31] MEDS ORDERED: Magnesium 1GM/D5W 100ML PREMIX 100 ML IV SCH (10:30)
[2023-12-31 10:35] LABS: ANISOCYTOSIS 1+; BAND % (MANUAL) 3 % (0.0-5.0); BASOPHILS % (MANUAL) 0 % (0.0-2.0); EOSINOPHILS % (MANUAL) 2 % (0-4); LYMPHOCYTES % (MANUAL) 17 % (16-48); MONOCYTES % (MANUAL) 9 % (0-11.0); NEUTROPHILS % (MANUAL) 69 (42-76); PLATELET ESTIMATE ADEQUATE
[2023-12-31 16:00] VITALS: BP 106/83; TEMP 98.2; O2SAT 98
[2023-12-31 20:00] VITALS: BP 108/75; TEMP 98.1; O2SAT 96
[2024-01-01 06:59] LABS: BASOPHILS # (AUTO) 0.1 K/uL (0.0-0.2); BASOPHILS % (AUTO) 0.6 % (0.0-2.0); EOSINOPHILS # (AUTO) 0.5 K/uL (0.0-0.7); EOSINOPHILS % (AUTO) 2.4 % (0.0-6.0); HEMATOCRIT 38 % (33-45); HEMOGLOBIN 13.1 g/dL (11.5-14.8); LYMPHOCYTES # (AUTO) 3.9 K/uL (0.8-4.8); LYMPHOCYTES % (AUTO) 20.9 % (20.0-44.0); MEAN CORPUSCULAR HEMOGLOBIN 32 PG (26.0-33.0); MEAN CORPUSCULAR HGB CONC 34 g/dl (31.0-36.0); MEAN CORPUSCULAR VOLUME 93 fL (82-100); MONOCYTES # (AUTO) 1.1 K/uL (0.1-1.30); MONOCYTES % (AUTO) 5.9 % (2.0-12.0); NEUTROPHILS # (AUTO) 13.1 K/uL (1.8-8.9); NEUTROPHILS % (AUTO) 70.2 % (43.0-81.0); PLATELET COUNT (AUTO) 310 K/uL (150-450); RED BLOOD CELL COUNT(AUTO) 4.11 MIL/uL (4.0-5.2); WHITE BLOOD COUNT (AUTO) 18.7 K/uL (4.3-11.0)
[2024-01-01 07:30] VITALS: BP 114/74; TEMP 98.6; O2SAT 97
[2024-01-01 07:40] LABS: CALCIUM, SERUM 9.3 mg/dL (8.5-10.1); CREATININE 1.7 mg/dL (0.6-1.3); POTASSIUM 3.1 mmol/L (3.5-5.1)
[2024-01-01] MEDS: POTASSIUM CHLORIDE 20 MEQ TAB.PRT.SR PO ONE (09:50)
[2024-01-01] MEDS: IV NS 0.9% 500 ML IV ONE (09:57)
[2024-01-01 16:33] VITALS: BP 100/59; TEMP 98.1; O2SAT 96
[2024-01-01 20:00] VITALS: BP 110/61; TEMP 97.8; O2SAT 97
[2024-01-02 07:02] LABS: BASOPHILS # (AUTO) 0.2 K/uL (0.0-0.2); BASOPHILS % (AUTO) 1.3 % (0.0-2.0); EOSINOPHILS # (AUTO) 0.4 K/uL (0.0-0.7); EOSINOPHILS % (AUTO) 2.1 % (0.0-6.0); HEMATOCRIT 33 % (33-45); LYMPHOCYTES # (AUTO) 2.9 K/uL (0.8-4.8); LYMPHOCYTES % (AUTO) 16.8 % (20.0-44.0); MEAN CORPUSCULAR HEMOGLOBIN 32 PG (26.0-33.0); MEAN CORPUSCULAR HGB CONC 33 g/dl (31.0-36.0); MEAN CORPUSCULAR VOLUME 97 fL (82-100); MONOCYTES # (AUTO) 1.4 K/uL (0.1-1.30); MONOCYTES % (AUTO) 7.8 % (2.0-12.0); NEUTROPHILS # (AUTO) 12.6 K/uL (1.8-8.9); PLATELET COUNT (AUTO) 277 K/uL (150-450); RED BLOOD CELL COUNT(AUTO) 3.44 MIL/uL (4.0-5.2); RED CELL DISTRIBUTION WIDTH 13.9 % (11.5-15.0); WHITE BLOOD COUNT (AUTO) 17.5 K/uL (4.3-11.0)
[2024-01-02 07:20] LABS: CALCIUM, SERUM 8.4 mg/dL (8.5-10.1); POTASSIUM 3.5 mmol/L (3.5-5.1)
[2024-01-02] MEDS: SODIUM CHLORIDE 1000 MG TABLET PO SCH (08:31)
[2024-01-02 08:55] VITALS: BP 98/64; TEMP 98.4; O2SAT 98
[2024-01-02 16:15] VITALS: BP 100/62; TEMP 98.6; O2SAT 100
[2024-01-02 20:57] VITALS: BP 93/58; TEMP 97.7; O2SAT 99
[2024-01-03 07:00] VITALS: BP 103/58; TEMP 99.3; O2SAT 98
[2024-01-03 07:34] LABS: BASOPHILS # (AUTO) 0.1 K/uL (0.0-0.2); EOSINOPHILS # (AUTO) 0.2 K/uL (0.0-0.7); EOSINOPHILS % (AUTO) 1.7 % (0.0-6.0); HEMATOCRIT 28 % (33-45); HEMOGLOBIN 9.4 g/dL (11.5-14.8); LYMPHOCYTES # (AUTO) 2.4 K/uL (0.8-4.8); LYMPHOCYTES % (AUTO) 19.3 % (20.0-44.0); MEAN CORPUSCULAR HEMOGLOBIN 32 PG (26.0-33.0); MEAN CORPUSCULAR HGB CONC 34 g/dl (31.0-36.0); MEAN CORPUSCULAR VOLUME 94 fL (82-100); MONOCYTES # (AUTO) 0.9 K/uL (0.1-1.30); MONOCYTES % (AUTO) 7.6 % (2.0-12.0); NEUTROPHILS # (AUTO) 8.8 K/uL (1.8-8.9); NEUTROPHILS % (AUTO) 70.4 % (43.0-81.0); PLATELET COUNT (AUTO) 293 K/uL (150-450); RED BLOOD CELL COUNT(AUTO) 2.94 MIL/uL (4.0-5.2); RED CELL DISTRIBUTION WIDTH 13.8 % (11.5-15.0); WHITE BLOOD COUNT (AUTO) 12.5 K/uL (4.3-11.0)
[2024-01-03 07:50] LABS: CALCIUM, SERUM 7.7 mg/dL (8.5-10.1)
[2024-01-03] MEDS: CALCIUM CARBONATE 500 MG TAB.CHEW PO ONE (09:19)
[2024-01-03] MEDS: POTASSIUM CHLORIDE 20 MEQ POWDER PACKET PO ONE (11:12)
[2024-01-03 16:00] VITALS: BP 87/50; TEMP 98.8; O2SAT 97
[2024-01-03 20:00] VITALS: BP 111/60; TEMP 97.9; O2SAT 97
[2024-01-03] MEDS: MAGNESIUM HYDROXIDE 30 ML UDC PO PRN (22:30)
[2024-01-04 07:00] VITALS: BP 101/57; TEMP 98.8; O2SAT 96
[2024-01-04 09:28] LABS: BASOPHILS # (AUTO) 0.1 K/uL (0.0-0.2); BASOPHILS % (AUTO) 0.9 % (0.0-2.0); EOSINOPHILS # (AUTO) 0.2 K/uL (0.0-0.7); EOSINOPHILS % (AUTO) 1.8 % (0.0-6.0); HEMATOCRIT 29 % (33-45); HEMOGLOBIN 9.5 g/dL (11.5-14.8); LYMPHOCYTES # (AUTO) 2.2 K/uL (0.8-4.8); LYMPHOCYTES % (AUTO) 16.1 % (20.0-44.0); MEAN CORPUSCULAR HEMOGLOBIN 32 PG (26.0-33.0); MEAN CORPUSCULAR HGB CONC 33 g/dl (31.0-36.0); MEAN CORPUSCULAR VOLUME 95 fL (82-100); MONOCYTES # (AUTO) 0.8 K/uL (0.1-1.30); NEUTROPHILS # (AUTO) 10.1 K/uL (1.8-8.9); NEUTROPHILS % (AUTO) 75.2 % (43.0-81.0); PLATELET COUNT (AUTO) 314 K/uL (150-450); RED BLOOD CELL COUNT(AUTO) 3.01 MIL/uL (4.0-5.2); WHITE BLOOD COUNT (AUTO) 13.4 K/uL (4.3-11.0)
[2024-01-04 09:40] LABS: CALCIUM, SERUM 8.5 mg/dL (8.5-10.1); POTASSIUM 3.8 mmol/L (3.5-5.1)
[2024-01-04 09:47] LABS: ALBUMIN 2.4 g/dL (3.4-5.0); BILIRUBIN,TOTAL 0.2 mg/dL (0.2-1.0)
[2024-01-04] MEDS ORDERED: PEG 3350/NA SULF,BICARB,CL/KCL 4,000 ML BOTTLE PO ONE (14:00)
[2024-01-04 16:00] VITALS: BP 122/65; TEMP 98.6; O2SAT 98
[2024-01-04 20:00] VITALS: BP 116/63; TEMP 98.2; O2SAT 97
[2024-01-05] MEDS: IV NS 0.9% 1,000 ML IV PRN (04:58)
[2024-01-05 06:47] LABS: BASOPHILS # (AUTO) 0.1 K/uL (0.0-0.2); BASOPHILS % (AUTO) 1.1 % (0.0-2.0); EOSINOPHILS # (AUTO) 0.2 K/uL (0.0-0.7); HEMATOCRIT 27 % (33-45); HEMOGLOBIN 9.3 g/dL (11.5-14.8); LYMPHOCYTES # (AUTO) 2.6 K/uL (0.8-4.8); MEAN CORPUSCULAR HEMOGLOBIN 32 PG (26.0-33.0); MEAN CORPUSCULAR HGB CONC 34 g/dl (31.0-36.0); MEAN CORPUSCULAR VOLUME 95 fL (82-100); MONOCYTES # (AUTO) 0.6 K/uL (0.1-1.30); MONOCYTES % (AUTO) 5.9 % (2.0-12.0); NEUTROPHILS # (AUTO) 7.3 K/uL (1.8-8.9); PLATELET COUNT (AUTO) 305 K/uL (150-450); RED BLOOD CELL COUNT(AUTO) 2.89 MIL/uL (4.0-5.2); RED CELL DISTRIBUTION WIDTH 14.3 % (11.5-15.0); WHITE BLOOD COUNT (AUTO) 10.9 K/uL (4.3-11.0)
[2024-01-05 07:00] VITALS: BP 103/68; TEMP 98.2; O2SAT 98
[2024-01-05 07:00] LABS: ALBUMIN 2.2 g/dL (3.4-5.0); BILIRUBIN,TOTAL 0.3 mg/dL (0.2-1.0); CALCIUM, SERUM 8.3 mg/dL (8.5-10.1); CREATININE 0.9 mg/dL (0.6-1.3); POTASSIUM 3.2 mmol/L (3.5-5.1); TOTAL PROTEIN, SERUM 5.6 g/dL (6.4-8.2)
[2024-01-05] MEDS: POTASSIUM CL. PREMIX PERIPHER. 50 ML IV SCH (10:44)
[2024-01-05] MEDS ORDERED: PEG 3350/NA SULF,BICARB,CL/KCL 4,000 ML BOTTLE PO ONE (14:00)
[2024-01-05 15:02] LABS: MAGNESIUM 1.7 mg/dL (1.8-2.4)
[2024-01-05] MEDS: PEG 3350/NA SULF,BICARB,CL/KCL 4,000 ML BOTTLE PO ONE (15:07)
[2024-01-05 21:12] VITALS: BP 115/68; TEMP 98.4
[2024-01-06] VITALS (11 sets, daily range): BP systolic 90–113; BP diastolic 58–83; TEMP 97.6–99.6; O2SAT 97
[2024-01-06 07:24] LABS: ALBUMIN 2.2 g/dL (3.4-5.0); BILIRUBIN,TOTAL 0.4 mg/dL (0.2-1.0); CREATININE 0.8 mg/dL (0.6-1.3); POTASSIUM 2.9 mmol/L (3.5-5.1); TOTAL PROTEIN, SERUM 5.4 g/dL (6.4-8.2)
[2024-01-06] MEDS: PANTOPRAZOLE 40 MG TABLET.DR PO SCH (07:30)
[2024-01-06 07:35] LABS: BASOPHILS # (AUTO) 0.1 K/uL (0.0-0.2); BASOPHILS % (AUTO) 0.9 % (0.0-2.0); EOSINOPHILS # (AUTO) 0.2 K/uL (0.0-0.7); EOSINOPHILS % (AUTO) 2.1 % (0.0-6.0); HEMATOCRIT 26 % (33-45); HEMOGLOBIN 8.7 g/dL (11.5-14.8); LYMPHOCYTES # (AUTO) 2.4 K/uL (0.8-4.8); LYMPHOCYTES % (AUTO) 26.8 % (20.0-44.0); MEAN CORPUSCULAR HEMOGLOBIN 32 PG (26.0-33.0); MEAN CORPUSCULAR HGB CONC 34 g/dl (31.0-36.0); MEAN CORPUSCULAR VOLUME 95 fL (82-100); MONOCYTES # (AUTO) 0.6 K/uL (0.1-1.30); MONOCYTES % (AUTO) 7.1 % (2.0-12.0); NEUTROPHILS # (AUTO) 5.8 K/uL (1.8-8.9); NEUTROPHILS % (AUTO) 63.1 % (43.0-81.0); PLATELET COUNT (AUTO) 295 K/uL (150-450); WHITE BLOOD COUNT (AUTO) 9.1 K/uL (4.3-11.0)
[2024-01-06] MEDS ORDERED: FENTANYL PF 100MCG/2ML AMPUL ONE (10:13)
[2024-01-06] MEDS ORDERED: LIDOCAINE 5% OINT 35.44 GM TUBE ONE (10:25)
[2024-01-06] MEDS ORDERED: MIDAZOLAM HCL 2 MG/2ML VIAL ONE (10:34)
[2024-01-06] MEDS ORDERED: ACETAMINOPHEN 325 MG TABLET ONE (10:44)
[2024-01-06] MEDS: GABAPENTIN 100 MG CAPSULE PO SCH (11:00)
[2024-01-06] MEDS: ACETAMINOPHEN 325 MG TABLET PO SCH (11:00)
[2024-01-06] MEDS ORDERED: LIDOCAINE 5% OINT 35.44 GM TUBE TP PRN (11:00)
[2024-01-06] MEDS: CELECOXIB 100 MG CAPSULE PO SCH (11:00)
[2024-01-06] MEDS: POTASSIUM CL. PREMIX PERIPHER. 50 ML IV SCH (11:59)
[2024-01-06] MEDS: POTASSIUM CHLORIDE 20 MEQ TAB.PRT.SR PO ONE ×2 (18:17→20:19)
[2024-01-07] MEDS: GABAPENTIN 100 MG CAPSULE PO SCH (05:41)
[2024-01-07] MEDS ORDERED: GABAPENTIN 100 MG CAPSULE PO SCH (06:00)
[2024-01-07 07:01] LABS: BASOPHILS # (AUTO) 0.1 K/uL (0.0-0.2); BASOPHILS % (AUTO) 0.7 % (0.0-2.0); EOSINOPHILS # (AUTO) 0.2 K/uL (0.0-0.7); EOSINOPHILS % (AUTO) 1.9 % (0.0-6.0); HEMATOCRIT 23 % (33-45); HEMOGLOBIN 7.9 g/dL (11.5-14.8); LYMPHOCYTES # (AUTO) 1.9 K/uL (0.8-4.8); LYMPHOCYTES % (AUTO) 17.1 % (20.0-44.0); MEAN CORPUSCULAR HEMOGLOBIN 33 PG (26.0-33.0); MEAN CORPUSCULAR HGB CONC 34 g/dl (31.0-36.0); MEAN CORPUSCULAR VOLUME 96 fL (82-100); MONOCYTES # (AUTO) 0.6 K/uL (0.1-1.30); MONOCYTES % (AUTO) 5.8 % (2.0-12.0); NEUTROPHILS # (AUTO) 8.1 K/uL (1.8-8.9); NEUTROPHILS % (AUTO) 74.5 % (43.0-81.0); PLATELET COUNT (AUTO) 238 K/uL (150-450); RED BLOOD CELL COUNT(AUTO) 2.42 MIL/uL (4.0-5.2); RED CELL DISTRIBUTION WIDTH 14.1 % (11.5-15.0); WHITE BLOOD COUNT (AUTO) 10.8 K/uL (4.3-11.0)
[2024-01-07 07:31] LABS: CALCIUM, SERUM 7.9 mg/dL (8.5-10.1); MAGNESIUM 1.3 mg/dL (1.8-2.4); PHOSPHORUS 2.4 mg/dL (2.5-4.9); POTASSIUM 4.1 mmol/L (3.5-5.1)
[2024-01-07 08:00] VITALS: BP 126/78; TEMP 98.1; O2SAT 94
[2024-01-07] MEDS: NEUTRA PHOS 1 POWD.PACKET PO SCH (10:05)
[2024-01-07] MEDS: MAGNESIUM OXIDE 400 MG TABLET PO ONE (10:06)
[2024-01-07] MEDS: Magnesium 1GM/D5W 100ML PREMIX 100 ML IV SCH (10:07)
[2024-01-07] MEDS ORDERED: PANT40TA49 PO (11:52)
== END 2024-01-07 13:35 | disposition home or self-care (01) | DRG 981 ==
LOC: ER 20:14 → ICU 12-26 01:06 → TELE 12-28 14:47 → MED 12-30 10:15
PROVIDERS: ADMIT Nurse Practitioner Acute Care; ATTEND Internal Medicine
PROC: 05HY33Z Insertion of Infusion Device into Upper Vein, Percutaneous Approach (ICD-10-PCS; 2023-12-26)
PROC: 05HY33Z Insertion of Infusion Device into Upper Vein, Percutaneous Approach (ICD-10-PCS; 2023-12-26)
PROC: 0DBK8ZX Excision of Ascending Colon, Via Natural or Artificial Opening Endoscopic, Diagnostic (ICD-10-PCS; principal; 2024-01-06)
PROC: 0DBP0ZZ Excision of Rectum, Open Approach (ICD-10-PCS; 2024-01-06)
DX: N17.9 Acute kidney failure, unspecified (principal); R65.11 Systemic inflammatory response syndrome (SIRS) of non-infectious origin with acute organ dysfunction; N39.0 Urinary tract infection, site not specified; E87.1 Hypo-osmolality and hyponatremia; K62.3 Rectal prolapse; E86.0 Dehydration; E78.5 Hyperlipidemia, unspecified; M47.9 Spondylosis, unspecified; E86.1 Hypovolemia; E83.42 Hypomagnesemia; B96.20 Unspecified Escherichia coli [E. coli] as the cause of diseases classified elsewhere; E87.6 Hypokalemia; K64.9 Unspecified hemorrhoids; K63.5 Polyp of colon; Z90.710 Acquired absence of both cervix and uterus; R13.10 Dysphagia, unspecified; E87.8 Other disorders of electrolyte and fluid balance, not elsewhere classified; D72.829 Elevated white blood cell count, unspecified; M89.8X9 Other specified disorders of bone, unspecified site; I49.9 Cardiac arrhythmia, unspecified; D12.7 Benign neoplasm of rectosigmoid junction; D12.2 Benign neoplasm of ascending colon; Z87.81 Personal history of (healed) traumatic fracture
CPT/HCPCS: 36410; 36415; 71045-TC; 76770-TC; 80048-TC; 80053-TC; 80061-TC; 80076-TC; 81001; 82550-TC; 82553; 82962-TC; 83735-TC; 83880; 83970; 84100-TC; 84155; 84165; 84443-TC; 84484-TC; 85025-TC; 85730-TC; 87040-TC; 87086-TC; 93307-TC; 97110-TC; 97116-TC; 97530-TC; A4223; A6253; G0378; J0696; J2250; J2405; J2704; J3010; J3475; J3480; J3490; J7030; J7040; J7042; J7050; J7060; J7070

== ENCOUNTER 2025-11-09 10:51 | Outpatient (CLI) | payer MEDICARE, BC ==
[~2025-11-09 10:51] MED LIST changes: +GABA300C PO; -GABA800T11 PO; +PANT40TA49 PO
== END 2025-11-09 23:59 | disposition home or self-care (01) ==
LOC: MSC 10:51
PROVIDERS: ATTEND Internal Medicine
DX: G90.50 Complex regional pain syndrome I, unspecified (principal); E83.39 Other disorders of phosphorus metabolism; N95.1 Menopausal and female climacteric states; R23.2 Flushing; E03.9 Hypothyroidism, unspecified; Z79.890 Hormone replacement therapy; E78.5 Hyperlipidemia, unspecified; R03.0 Elevated blood-pressure reading, without diagnosis of hypertension; G47.00 Insomnia, unspecified; F41.9 Anxiety disorder, unspecified; N18.9 Chronic kidney disease, unspecified; M43.16 Spondylolisthesis, lumbar region; M81.0 Age-related osteoporosis without current pathological fracture; D64.9 Anemia, unspecified; Z85.048 Personal history of other malignant neoplasm of rectum, rectosigmoid junction, and anus